=== PATIENT | female | born 1960 | race Caucasian/White ===

== ENCOUNTER → 2017-04-18 | Day surgery (SDC) | payer OTHER ==
[~2017-04-18] VITALS: Ht 160 cm; Wt 80.5 kg
[~2017-04-18] MED LIST: *MEPERIDINE 25 MG INJ VIAL PERIprocedural Use ONLY ONE; ACETAMINOPHEN 1000 MG/100 ML 100 ML IV ONE; ALPR.25 PO; CHLORHEXIDINE GLUCONATE 2 % 1 PACK (2 CLOTHS) TOPICAL PRN; CLINDAMYCIN 600 MG/NS 100 ML IV SCH; DEXAMETHASONE SOD PHOS 4 MG/ML VIAL IV ONE; DO NOT ADM ANY ANTICOAGULANT DRUGS PRN; FAMOTIDINE 20 MG/2 ML VIAL ONE; INSULIN HUMAN REGULAR 1,000 UNITS/10 ML VIAL SQ PRN; LACTATED RINGER'S 1000 ML IV PRN; LIDOCAINE HCL 1% PF 5 ML AMPULE OTHER ONE; METOPROLOL TARTRATE 25 MG TAB PO PRN; MONT10TA2 PO; ONDANSETRON HCL 4 MG/2 ML VIAL IV PUSH ONE; PANT20TA2 PO; POVIDONE IODINE 5% (ANTISEPSIS KIT) 4 APPLICATIONS EACH NARE PRN; PROPOFOL 200 MG/20 ML AMP IV ONE; SODIUM CHLORID 0.9% 500 ML IV PRN; ePHEDrine/NS 25 MG/5 ML SYR IV ONE; oxyCODONE/ACETAMINOPHEN 5 MG/325 MG TAB PO PRN
--- NOTE | 2017-04-18 08:26 | PD.OP ---
Operative Report Date of Surgery: Apr 18, 2017 Preoperative Diagnosis: (1) Vaginal high risk HPV DNA test positive (2) LGSIL Pap smear of vagina (3) Postmenopausal atrophic vaginitis (4) History of cervical cancer Postoperative Diagnosis: (1) Vaginal high risk HPV DNA test positive (2) LGSIL Pap smear of vagina (3) Postmenopausal atrophic vaginitis (4) History of cervical cancer Procedure: 1. vaginal biopsies Anesthesia: LAWANDA Surgeon: Camila March Certified Technician(s): OR Staff Operation and Findings: IVF: 900 ml LR + IV antibiotic given prior to surgery UO: 100 ml EBL: < 5 ml Findings: areas of AWE noted in vaginal cuff Specimens: vaginal biopsies Complications: none Condition: stable Disposition: PACU Description of the procedure: I discussed the risks, benefits and alternatives of the procedure with the patient. Her questions were answered, informed consent was signed by patient, the patient verbalized understanding. She was then taken to the operating room with her IV running, was placed in the supine position and was given general anesthesia without difficulties or complications.The patient was then placed in the dorsal lithotomy position and was prepped and draped in the usual sterile fashion. Attention was first turned to the patient's pelvic area. A bivalved speculum was introduced inside the patient's vagina. The vaginal cuff was cleared of iodine. Acetic acid was used to cover the vaginal cuff. After a 1-2 minute period, acetowhite epithelium showed in a few areas. Kevorkian forceps were used to obtained biopsies. Lugol was also used to stain the vaginal cuff. Abnormal areas identified were consistent with the ones previously seen. Monsel was applied to vaginal cuff to achieve excellent hemostasis. The patient tolerated the procedure well. She was successfully awaken from general anesthesia without difficulties or complications. The patient was transferred to PACU in stable condition. Note: I discussed the surgical procedure and surgical findings with patient's family member; she verbalized understanding and agreement to the procedures done ; her questions were answered. Camila March MD Apr 18, 2017 08:26
[2017-04-18 11:30] VITALS: BP 126/71; PULSE 55; RESP 18; TEMP 96.8; O2SAT 98
--- NOTE | 2017-04-18 21:20 | EKG ---
Date Performed: 04/18/2017 Time Performed: 07:18:06 PTAGE: 56 years EKG: Sinus rhythm POSSIBLE ANTERIOR MYOCARDIAL INFARCTION , OF INDETERMINATE AGE ABNORMAL ECG NO PREVIOUS TRACING DOCTOR: Wong Kay Interpretating Date/Time 04/18/2017 21:18:05
== END | disposition home or self-care (01) ==
LOC: HSDC 06:43
PROVIDERS: ATTEND Obstetrics & Gynecology
DX: R87.613 High grade squamous intraepithelial lesion on cytologic smear of cervix (HGSIL) (principal); N95.2 Postmenopausal atrophic vaginitis; R94.31 Abnormal electrocardiogram [ECG] [EKG]; Z85.41 Personal history of malignant neoplasm of cervix uteri
CPT/HCPCS: 00940; 57105; 88305; 93005; J0131; J1100; J2175; J2405; J3010; J7120

== ENCOUNTER → 2017-05-16 | Day surgery (SDC) | payer OTHER ==
[~2017-05-16] VITALS: Ht 163.8 cm; Wt 78.4 kg
[~2017-05-16] MED LIST changes: -*MEPERIDINE 25 MG INJ VIAL PERIprocedural Use ONLY ONE; +BIOTCAP PO; +BUPIVACAINE/EPINEPHRINE 0.25% PF 30 ML VIAL ONE; +CENTCHW4 CHEW; +CLINDAMYCIN 600 MG PREMIX 50 ML IV SCH; -CLINDAMYCIN 600 MG/NS 100 ML IV SCH; +CYAN1TAB24 PO; +D200CAP PO; -DEXAMETHASONE SOD PHOS 4 MG/ML VIAL IV ONE; -FAMOTIDINE 20 MG/2 ML VIAL ONE; +FOLI800T PO; -INSULIN HUMAN REGULAR 1,000 UNITS/10 ML VIAL SQ PRN; -LIDOCAINE HCL 1% PF 5 ML AMPULE OTHER ONE; +OMEG-33 PO; -ONDANSETRON HCL 4 MG/2 ML VIAL IV PUSH ONE; -PROPOFOL 200 MG/20 ML AMP IV ONE; +VITA-142 PO; +VITACAP7 PO; -ePHEDrine/NS 25 MG/5 ML SYR IV ONE
--- NOTE | 2017-05-16 11:01 | PD.OP ---
Operative Report Date of Surgery: May 16, 2017 Preoperative Diagnosis: (1) HGSIL on cytologic smear of vagina (2) Vaginal high risk HPV DNA test positive (3) History of cervical cancer (4) Postmenopausal atrophic vaginitis Postoperative Diagnosis: (1) HGSIL on cytologic smear of vagina (2) Vaginal high risk HPV DNA test positive (3) History of cervical cancer (4) Postmenopausal atrophic vaginitis Procedure: Laser to vaginal cuff Anesthesia: LAWANDA Surgeon: Camila March Shrink Pit Operator(s): OR staff Operation and Findings: IVF: 300 ml LR + IV antibiotic given prior to surgery UO: none EBL: < 10 ml Findings: vaginal cuff healing well from previous procedure Specimens: none Complications: none Condition: stable Disposition: PACU Description of the procedure: The risks, benefits and alternatives of the procedure were discussed with patient. Informed consent was obtained after questions were answered. The patient was then taken to the operating room with her IV running. She was placed in the supine position and was given general anesthesia without difficulties or complications. She was then placed in the dorsal lithotomy position and was prepped and draped in the usual sterile fashion. A bivalve speculum was placed inside the patient's vagina. The vaginal cuff was identified. Laser CO2 was used to laser the vaginal cuff to a depth of 1 - 1.5 mm in a rectangular-shape area to cover the entire vaginal cuff. Excellent hemostasis was noted. All the instruments were removed from the patient's vagina. The patient tolerated the procedure well. She was successfully extubated and transferred to PACU in stable condition. Note: I discussed the surgical findings and procedures done with patient's significant other. Her questions were answered, she verbalized understanding and agreement to the procedures done. Camila March MD May 16, 2017 11:01
[2017-05-16 18:45] VITALS: TEMP 98
[2017-05-16 19:10] VITALS: BP 126/76; PULSE 69; RESP 18; O2SAT 98
== END | disposition home or self-care (01) ==
LOC: HSDC 13:00 → EDSTATUS 15:30
PROVIDERS: ATTEND Obstetrics & Gynecology
DX: R87.613 High grade squamous intraepithelial lesion on cytologic smear of cervix (HGSIL) (principal); R87.811 Vaginal high risk human papillomavirus (HPV) DNA test positive; N95.2 Postmenopausal atrophic vaginitis; Z85.41 Personal history of malignant neoplasm of cervix uteri
CPT/HCPCS: 00940; 57065; J0131; J7120